=== PATIENT | male | born 1985 | race Caucasian/White ===

== ENCOUNTER → 2017-02-05 | Outpatient (CLI) | payer OTHER ==
[~2017-02-05] MED LIST: IBUP1TAB7 PO; MULT1TAB36 PO
[2017-02-05 13:15] LABS: BASO # 0.1 K/mm3 (0.0-0.2); BASO % 1.6 % (0.0-1.0); EOS # 0.1 K/mm3 (0.0-0.50); EOS % 1.4 % (0.0-3.0); LARGE UNSTAINED CELL # 0.2 K/mm3 (0.0-0.4); LARGE UNSTAINED CELL % 2.5 % (0.0-4.0); LYMPH # 2.7 K/mm3 (1.5-4.5); LYMPH % 40.8 % (24.0-44.0); MEAN CORPUSCULAR HEMOGLOBIN 31.5 pg (27.0-33.0); MEAN CORPUSCULAR HGB CONC 35.6 g/dl (32.0-36.5); MEAN CORPUSCULAR VOLUME 88.4 fl (80.0-96.0); MONO # 0.4 K/mm3 (0.0-0.8); MONO % 5.3 % (0.0-5.0); NEUTROPHILS # 3.2 K/mm3 (1.8-7.7); NEUTROPHILS % 48.4 % (36.0-66.0); PLATELET COUNT, AUTOMATED 268 k/mm3 (150-450); RED CELL DISTRIBUTION WIDTH 12.2 % (11.5-14.5); WHITE BLOOD COUNT 6.6 K/mm3 (4.0-10.0)
[2017-02-05 13:50] LABS: ANION GAP 3 MEQ/L (8-16); BLOOD UREA NITROGEN 17 MG/DL (7-18); CALCIUM LEVEL 8.9 MG/DL (8.5-10.1); CARBON DIOXIDE LEVEL 32 MEQ/L (21-32); CHLORIDE LEVEL 107 MEQ/L (98-107); CREATININE FOR GFR 1.01 MG/DL (0.70-1.30); GLOMERULAR FILTRATION RATE > 60.0 (>60); GLUCOSE, FASTING 81 MG/DL (70-105); POTASSIUM SERUM 4.3 MEQ/L (3.5-5.1); SODIUM LEVEL 142 MEQ/L (136-145)
== END ==
LOC: M LAB 12:33
PROVIDERS: ATTEND Podiatrist
DX: Z01.812 Encounter for preprocedural laboratory examination (principal)

== ENCOUNTER → 2017-02-14 | Day surgery (SDC) | payer OTHER ==
[~2017-02-14] VITALS: Ht 172.7 cm; Wt 93.0 kg
[~2017-02-14] MED LIST changes: +BACITRACIN PWD 50,000 UNITS VIAL As Ordered ONE; +BUPIVACAINE HCL 0.5% 30 ML VIAL As Ordered ONE; +LIDOCAINE 2% INJ 100 MG/5 ML SDV (FOR ANES.) As Ordered ONE; +LIDOCAINE 2% MDV 20 ML VIAL As Ordered ONE; +LR 1,000 ML IV ONE; +LR 1,000 ML IV SCH; +MIDAZOLAM INJ 2 MG/2 ML VIAL (J2250) As Ordered ONE; +ONDANSETRON 4MG/2ML VIAL (J2405) IV PRN; +PERCOCET 5MG/325MG TAB As Ordered ONE; +PERCOCET 5MG/325MG TAB PO PRN; +PROPOFOL 200 MG/20 ML VIAL As Ordered ONE; +VANCOMYCIN HCL 1,000 MG, VIAL MATE ADAPTER 1 EACH in D5W 250 ML IV ONE; +dexameTHASONE 4 MG/ML 1ML VIAL (J1100) As Ordered ONE; +fentaNYL 100 MCG/2 ML INJECTION (J3010) As Ordered ONE
[2017-02-14 10:45] VITALS: BP 119/82
--- NOTE | 2017-02-14 11:27 | REP ---
Clinical: Status post surgery for baseline. Technique: Portable AP, lateral, bilateral oblique views. Findings: The patient is status post bunionectomy with postsurgical changes involving the first and fifth metatarsal bones. Overlying soft tissue swelling and small amount of subcutaneous emphysema are appreciated. Impression: Status post operative procedures involving the first and fifth metatarsal bones. Satisfactory alignment suggested. Signed by Estuardo Gutierrez MD 02/14/2017 11:18 A
--- NOTE | 2017-02-15 08:56 | RO ---
DATE OF PROCEDURE: 02/14/2017 PREOPERATIVE DIAGNOSIS: Hallux valgus and metatarsus primus varus deformity of the left foot. Bunionette deformity of the left foot. POSTOPERATIVE DIAGNOSIS: Hallux valgus and metatarsus primus varus deformity of the left foot. Bunionette deformity of the left foot. PROCEDURE PERFORMED: 1. Christen bunionectomy with internal screw fixation, a 3.0 mm x 24 mm times one, left foot. 2. Tailor's bunionectomy with distal V osteotomy and internal screw fixation 2.5 x 16 mm times one, left foot. SURGEON: Roverto Kirkpatrick DPM OUTBOUND SALES REPRESENTATIVE: None. ANESTHESIA: Local monitored anesthesia care (MAC). IRRIGATIONS: Dilute bacitracin, neomycin and polymyxin B solution. HEMOSTASIS: Ankle pneumatic tourniquet at 250 mmHg for 58 minutes. HARDWARE UTILIZED: Right DART-FIRE 3.0 x 24 and a 2.5 x 16. DESCRIPTION OF OPERATION: On 02/14/2017 this 31-year-old white male was taken from his hospital room to the operating room and placed on the operating room table in supine position. Following the induction of IV sedation, local and regional anesthesia, the left lower extremity was prepped and draped in the usual aseptic manner. The left lower extremity was elevated 45 degrees from the horizontal plane for the purpose of preoperative exsanguination of the limb. During this 3 minute time period, an ankle pneumatic tourniquet was applied just proximal to the medial and lateral malleolus, well padded site. To further exsanguinate the limb, a Orion's esmarch bandage was placed circumferentially extending from the digits to the distal edge of the ankle pneumatic tourniquet. The ankle pneumatic tourniquet was rapidly inflated to 250 mmHg for the purpose of intraoperative hemostasis. Orion's esmarch bandage was removed. The left lower extremity was returned to the operating room table, sterile drape was placed and the following procedure was performed: CHRISTEN BUNIONECTOMY WITH INTERNAL SCREW FIXATION, A 3.0 mm x 24 mm TIMES ONE, LEFT FOOT: Attention was directed to the patient's left foot where there was noted to be a hallux valgus deformity. At this time, a 6 cm incision was placed over the first metatarsal phalangeal joint medial to the extensor tendon. The incision was deepened through subcutaneous tissues and all coursing venous tributaries were identified, underscored, clamped, cut, ligated, and electrocoagulated as necessary. A linear capsulotomy was then performed in the same plane as the original skin incision. The capsular and periosteal structures were dissected dorsally, medially and laterally, thus creatinine a capsular periosteal type envelope. This delivered into view the hypertrophied medial eminence of the first metatarsal, which was osteotomized from dorsal to plantar through and through, exiting medially to the sesamoidal groove. Attention was directed into the first intermetatarsal space where the conjoined tendon was sharply dissected free from the fibular sesamoid. A V shaped osteotomy was then performed on the medial aspect of the first metatarsal with a long plantar and short dorsal wing. It was transposed approximately 40% of the width of the shaft of the first metatarsal and fixated with a 3.0 x 24 mm cannulated compression screw. The screw did not penetrate the inferior cartilage on direct visualization. The redundant cortical spike was then osteotomized from dorsal to plantar through and through and extirpated from the wound in toto. The medial surface was rasped to a smooth contour with a handheld rasp. The wound was flushed with copious amounts of dilute Bacitracin, Neomycin, and Polymyxin B solution. Attention was directed towards closure where the capsular structures were coapted and maintained utilizing #2-0 Monocryl in a simple interrupted type fashion. The subcutaneous tissues were coapted and maintained utilizing #4-0 Monocryl in a simple interrupted type fashion. The skin incision was coapted and maintained using #5-0 Monocryl in a continuous subcuticular type fashion. This was additionally reinforced with Steri-Strips. Attention was then directed to the 5th metatarsal where the following procedure was performed. TAILOR'S BUNIONECTOMY WITH DISTAL V OSTEOTOMY AND INTERNAL SCREW FIXATION 2.5 x 16 mm TIMES ONE, LEFT FOOT: Attention was directed to the patient's left foot where there was noted to be a tailor's bunion deformity. At this time, a 4 cm lateral incision was placed at the 5th metatarsal phalangeal joint. The incision was deepened through subcutaneous tissues and all coursing venous tributaries were identified, underscored, clamped, cut, ligated, and electrocoagulated as necessary. A linear capsulotomy was then performed in the same plane as the original skin incision. A capsule was then created dorsally and plantarly. The hypertrophied lateral eminence was osteotomized from distal to proximal through and through. This was extirpated from the wound. A V shaped osteotomy was then performed in the distal metaphysis of the 5th metatarsal with long plantar and short dorsal wing and transposed approximately 40% of the width of the shaft of the 5th metatarsal and fixated with a 2.5 x 16 mm cannulated compression screw. The screw did not penetrate the inferior cartilage felt through range of motion. The redundant cortical spike was osteotomized from dorsal to plantar through and through and extirpated from the wound in toto. The lateral surface was rasped to a smooth contour. The wound was flushed with copious amounts of dilute Bacitracin, Neomycin, and Polymyxin B solution. Closure was obtained with #2-0 Monocryl in a simple interrupted type fashion through the capsular structures. The subcutaneous tissues were coapted and maintained utilizing #4-0 Monocryl in a simple interrupted type fashion. The skin incision was coapted and maintained utilizing #5-0 Monocryl in a continuous subcuticular type fashion and additionally reinforced with Steri-Strips. Following the completion of the surgical procedure, 4 mg of dexamethasone sodium phosphate was instilled proximal to the surgical site. Attention was then directed towards bandaging where a sterile compressive bandage was applied consisting of Adaptic, 4x4's, 4x4 splints, Luis Antonio, Kerlix, and Coban. The ankle pneumatic tourniquet was rapidly deflated and instantaneous capillary filling time was noted in digits 1-5 of the patient's left foot. The patient apparently having tolerated the surgical procedure well was taken from the OR to the recovery room with vital signs stable, patient afebrile, and for further monitoring by the anesthesia department. All surgical specimens removed during the operative procedure were sent to pathology for examination. Postoperative instructions given upon discharge.
== END | disposition home or self-care (01) ==
LOC: M SDC 07:23
PROVIDERS: ATTEND Podiatrist
DX: M20.12 Hallux valgus (acquired), left foot (principal); M21.622 Bunionette of left foot; Z88.0 Allergy status to penicillin
CPT/HCPCS: 28113; 28296; 73630; 88300; 97116; C1776; J1100; J2250; J3010; J3370

== ENCOUNTER → 2017-05-13 | Outpatient (CLI) | payer OTHER ==
[~2017-05-13] MED LIST changes: -BACITRACIN PWD 50,000 UNITS VIAL As Ordered ONE; -BUPIVACAINE HCL 0.5% 30 ML VIAL As Ordered ONE; -LIDOCAINE 2% INJ 100 MG/5 ML SDV (FOR ANES.) As Ordered ONE; -LIDOCAINE 2% MDV 20 ML VIAL As Ordered ONE; -LR 1,000 ML IV ONE; -LR 1,000 ML IV SCH; -MIDAZOLAM INJ 2 MG/2 ML VIAL (J2250) As Ordered ONE; -ONDANSETRON 4MG/2ML VIAL (J2405) IV PRN; -PERCOCET 5MG/325MG TAB As Ordered ONE; -PERCOCET 5MG/325MG TAB PO PRN; -PROPOFOL 200 MG/20 ML VIAL As Ordered ONE; -VANCOMYCIN HCL 1,000 MG, VIAL MATE ADAPTER 1 EACH in D5W 250 ML IV ONE; -dexameTHASONE 4 MG/ML 1ML VIAL (J1100) As Ordered ONE; -fentaNYL 100 MCG/2 ML INJECTION (J3010) As Ordered ONE
[2017-05-13 08:58] LABS: BASO # 0.1 10^3/uL (0.0-0.2); BASO % 0.8 % (0.0-1.0); EOS # 0.1 10^3/uL (0.0-0.50); EOS % 1.7 % (0.0-3.0); IMMATURE GRANULOCYTE % 0.2 % (0-0); LYMPH # 1.4 10^3/uL (1.5-4.5); LYMPH % 21.3 % (24.0-44.0); MEAN CORPUSCULAR HEMOGLOBIN 30.6 pg (27.0-33.0); MEAN CORPUSCULAR HGB CONC 34.9 g/dl (32.0-36.5); MEAN CORPUSCULAR VOLUME 87.6 fl (80.0-96.0); MONO # 0.4 10^3/uL (0.0-0.8); MONO % 6.2 % (0.0-5.0); NEUTROPHILS # 4.6 10^3/uL (1.8-7.7); NEUTROPHILS % 69.8 % (36.0-66.0); PLATELET COUNT, AUTOMATED 255 10^3/uL (150-450); RED CELL DISTRIBUTION WIDTH 11.8 % (11.5-14.5); WHITE BLOOD COUNT 6.6 10^3/uL (4.0-10.0)
[2017-05-13 09:00] LABS: ADD MANUAL DIFFER NO; DIFF SLIDE NUMBER 140
[2017-05-13 09:49] LABS: ANION GAP 4 MEQ/L (8-16); BLOOD UREA NITROGEN 16 MG/DL (7-18); CALCIUM LEVEL 8.9 MG/DL (8.5-10.1); CARBON DIOXIDE LEVEL 33 MEQ/L (21-32); CHLORIDE LEVEL 107 MEQ/L (98-107); CREATININE FOR GFR 1.15 MG/DL (0.70-1.30); GLOMERULAR FILTRATION RATE > 60.0 (>60); GLUCOSE, FASTING 75 MG/DL (70-105); POTASSIUM SERUM 3.8 MEQ/L (3.5-5.1); SODIUM LEVEL 144 MEQ/L (136-145)
== END ==
LOC: M LAB 08:41
PROVIDERS: ATTEND Podiatrist
DX: Z01.818 Encounter for other preprocedural examination (principal)

== ENCOUNTER 2017-05-16 06:39 | Day surgery (SDC) | payer OTHER ==
[~2017-05-16] VITALS: Ht 170.2 cm; Wt 99.8 kg
[2017-05-16] MEDS ORDERED: VANCOMYCIN HCL 1,000 MG, VIAL MATE ADAPTER 1 EACH in D5W 250 ML IV ONE (06:45)
[2017-05-16] MEDS ORDERED: LR 1,000 ML IV ONE (06:45)
[2017-05-16] MEDS ORDERED: BUPIVACAINE HCL 0.5% 30 ML VIAL As Ordered ONE (07:15)
[2017-05-16] MEDS ORDERED: LIDOCAINE 2% MDV 20 ML VIAL As Ordered ONE (07:15)
[2017-05-16] MEDS ORDERED: dexameTHASONE 4 MG/ML 1ML VIAL (J1100) As Ordered ONE (07:15)
[2017-05-16] MEDS ORDERED: PROPOFOL 200 MG/20 ML VIAL As Ordered ONE ×2 (07:15→08:42)
[2017-05-16] MEDS ORDERED: BACITRACIN PWD 50,000 UNITS VIAL As Ordered ONE (07:16)
[2017-05-16] MEDS ORDERED: NEOSPORIN GU IRRIG 20 ML VIAL As Ordered ONE (07:16)
[2017-05-16] MEDS ORDERED: fentaNYL 100 MCG/2 ML INJECTION (J3010) As Ordered ONE (07:21)
[2017-05-16] MEDS ORDERED: MIDAZOLAM INJ 2 MG/2 ML VIAL (J2250) As Ordered ONE (07:22)
[2017-05-16] MEDS ORDERED: KETOROLAC 60 MG/2 ML VIAL (J1885) As Ordered ONE (08:35)
--- NOTE | 2017-05-16 10:34 | REP ---
RIGHT FOOT SERIES: THREE VIEWS. HISTORY: Postop evaluation. FINDINGS: Three views of the right foot are obtained through overlying dressing. The patient is status post distal 1st and distal 5th metatarsal osteotomies. A metallic screw is seen pinning each of these. There is associated soft-tissue swelling and emphysema. Mild Achilles calcaneal spurring is seen. No other abnormality. IMPRESSION: Status post bunion repair distal 1st and distal 5th metatarsal. Signed by Garrison Vega MD 05/16/2017 03:49 P
[2017-05-16 10:41] VITALS: BP 121/74
[2017-05-16] MEDS ORDERED: PERCOCET 5MG/325MG TAB As Ordered ONE (11:21)
[2017-05-16] MEDS ORDERED: PERCOCET 5MG/325MG TAB PO PRN (11:30)
--- NOTE | 2017-05-16 14:04 | RO ---
DATE OF PROCEDURE: 05/16/2017 PREOPERATIVE DIAGNOSES: Hallux valgus metatarsus primus varus deformity, right foot. Tailor's bunion deformity, right foot. POSTOPERATIVE DIAGNOSES: Hallux valgus metatarsus primus varus deformity, right foot. Tailor's bunion deformity, right foot. SURGERY PERFORMED: Christen bunionectomy with internal screw fixation, right foot, 3.0 mm x 22 mm times one. Tailor's bunionectomy with distal V osteotomy, internal screw fixation, 2.5 mm x 16 mm times one right foot. SURGEON: Roverto Kirkpatrick DPM STERILE PROCESSING TECHNOLOGIST: None. ANESTHESIA: Local monitored anesthesia care (MAC). HEMOSTASIS: Ankle pneumatic tourniquet. TOURNIQUET TIME: 1 hour, right ankle. HARDWARE UTILIZED: Hurd DART-FIRE 3.0 x 22 and a 2.5 x 16. DESCRIPTION OF OPERATION: On 05/16/2017, this 32-year-old white male was taken from his hospital room to the operating room and placed on the operating room table in supine position. Following the induction of IV sedation, local and regional anesthesia, the right lower extremity was prepped and draped in the usual aseptic manner. Attention was directed to the patient's right foot. Sterile draping was completed and the ankle pneumatic tourniquet was rapidly inflated to 220 mmHg and the following procedure was performed: CHRISTEN BUNIONECTOMY WITH INTERNAL SCREW FIXATION, 3.0 MM X 22 MM TIMES ONE, RIGHT FOOT: Attention was directed to the patient's right foot where there was noted to be a hallux valgus deformity. At this time, a 5 cm incision was placed over the dorsal aspect of the first metatarsal phalangeal joint medial to the extensor tendon. The incision was deepened through subcutaneous tissues and all coursing venous tributaries were identified, underscored, clamped, cut, ligated, and electrocoagulated as necessary. A linear capsulotomy was then performed in the same plane as the original skin incision. The capsular and periosteal structures were dissected free, dorsally and medially. Hypertrophied medial eminence was then osteotomized from dorsal to plantar through and through, exiting medial the sesamoidal groove. Attention was then directed into the first intermetatarsal space where dissection was carried down to the level of the fibular sesamoid. The conjoin tendon ws sharply dissected free from the fibular sesamoid. Attention was then directed to the medial surface of the first metatarsal where a V-shaped osteotomy was performed with a long plantar and short dorsal wing. Upon creation of this osteotomy, the capital fragment was transposed 40% of the width of the shaft of the first metatarsal and fixated with a 3.0 mm x 22 mm cannulated compression screw. Redundant cortical spike was then osteotomized from dorsal to plantar through and through and the medial surface was rasped to a smooth contour. The wound was flushed with copious amounts of dilute bacitracin, neomycin, and polymyxin B solution. Attention was directed towards closure where the capsular structures were coapted and maintained utilizing #2-0 Monocryl in a simple interrupted type fashion. The subcutaneous tissues were coapted and maintained utilizing #4-0 Monocryl in a simple interrupted type fashion. The skin incision was coapted and maintained utilizing #5-0 Monocryl in a continuous subcuticular type fashion. This was additionally reinforced with Steri-Strips. Attention was directed to the lateral surface of the foot where the following procedure was performed: TAILOR'S BUNIONECTOMY WITH DISTAL V OSTEOTOMY, INTERNAL SCREW FIXATION, 2.5 MM X 16 MM TIMES ONE, RIGHT FOOT: Attention was directed to the patient's foot where there was noted to be a Tailors bunion deformity. At this time, a lateral incision was placed over the fifth metatarsal phalangeal joint. The incision was deepened through subcutaneous tissues and all coursing venous tributaries were identified, underscored, clamped, cut, ligated, and electrocoagulated as necessary. A linear capsulotomy was performed in the same plane as the original skin incision and the capsule and periosteal structures were then dissected free in one continuous layer dorsally and plantarly. The hypertrophied lateral eminence was then osteotomized from distal to proximal through and through and extirpated from the wound. A V-shaped osteotomy was then performed in the distal aspect of the fifth metatarsal with a long plantar and short dorsal wing. The capital fragment was transposed 40% of the width of the shaft of the fifth metatarsal and fixated with a 2.5 x 16 mm cannulated compression screw. The redundant cortical spike was osteotomized from dorsal to plantar through and through. The lateral surface was rasped to a smooth contour with a handheld rasp. The wound was with copious amounts of dilute bacitracin, neomycin, and polymyxin B solution. Attention was directed towards closure where the capsular structures were coapted and maintained with #2-0 Monocryl in a simple interrupted type fashion. The subcutaneous tissues were coapted and maintained utilizing #4-0 Monocryl in a simple interrupted type fashion. The skin incision was coapted and maintained utilizing #5-0 Monocryl in a continuous subcuticular type fashion. This was additionally reinforced with Steri-Strips. Following the completion of the surgical procedure, 4 mg of dexamethasone sodium phosphate was instilled proximal to the surgical site. Attention was directed towards bandaging where a sterile compressive bandage was applied consisting of Adaptic, 4x4s, 4x4 splints, Luis Antonio, Kerlix, and Coban. The ankle pneumatic tourniquet was rapidly deflated and instantaneous capillary filling time was noted in digits 1-5 of the patient's right foot. The patient apparently having tolerated the surgical procedure well was taken from the OR to the recovery room with vital signs stable and the patient afebrile for further monitoring by the anesthesia department. All surgical specimens removed during the operative procedure were sent to pathology for gross and microscopic examination. Postoperative instructions will be given upon discharge.
== END 2017-05-16 12:00 | disposition home or self-care (01) ==
LOC: M SDC 06:39
PROVIDERS: ATTEND Podiatrist
DX: M20.11 Hallux valgus (acquired), right foot (principal); M21.621 Bunionette of right foot; Z88.0 Allergy status to penicillin
CPT/HCPCS: 28110; 28296; 73630; 88300; C1776; J1100; J1885; J2250; J3010; J3370

== ENCOUNTER → 2017-10-20 | Outpatient (CLI) | payer OTHER ==
[~2017-10-20] MED LIST changes: -IBUP1TAB7 PO; +ISOVUE-370 76% 100ML VIAL (Q9967) As Ordered; -MULT1TAB36 PO
== END ==
LOC: M RAD 16:26
DX: R51 Headache (principal)
CPT/HCPCS: Q9967

== ENCOUNTER → 2017-12-15 | Outpatient (CLI) | payer OTHER | LOC: M RAD 15:51 | DX: J32.0 Chronic maxillary sinusitis (principal) | CPT/HCPCS: 70486 ==

== ENCOUNTER → 2017-12-22 | Outpatient (CLI) | payer OTHER ==
[~2017-12-22] MED LIST changes: -ISOVUE-370 76% 100ML VIAL (Q9967) As Ordered; +PROHANCE 279.3MG/ML 15ML VIAL (A9576) As Ordered; +PROHANCE 279.3MG/ML 5ML VIAL (A9576) As Ordered
== END ==
LOC: M RAD 17:03
DX: G57.01 Lesion of sciatic nerve, right lower limb (principal)
CPT/HCPCS: A9576